=== PATIENT | male | born 1960 | race Two or more races ===

== ENCOUNTER 2025-01-20 08:15 | Emergency (ER) | payer BC ==
[~2025-01-20] VITALS: Ht 180.3 cm; Wt 102.1 kg
[2025-01-20 08:27] VITALS: BP 154/81; TEMP 98; O2SAT 98
[2025-01-20] MEDS ORDERED: INDO-12 PO (08:33)
[2025-01-20] MEDS ORDERED: METH4TAB3 PO (08:33)
[2025-01-20] MEDS ORDERED: KETOROLAC TROMETHAMINE 15 MG/ML VIAL ONE (08:35)
[2025-01-20] MEDS: KETOROLAC TROMETHAMINE 15 MG/ML VIAL IM ONE (08:42)
== END 2025-01-20 08:46 | disposition home or self-care (01) ==
LOC: ER 08:22
DX: M10.9 Gout, unspecified (principal); I10 Essential (primary) hypertension; E11.9 Type 2 diabetes mellitus without complications
CPT/HCPCS: 99283; 96372; J1885